=== PATIENT | female | born 1975 | race Caucasian/White ===

== ENCOUNTER 2020-07-15 12:00 | Outpatient (REF) | payer MEDICAID, SELFPAY ==
[2020-07-15 13:48] LABS: MANUAL DIFF FLAG NO
[2020-07-15 14:02] LABS: Basophils Percent Auto 0.3 % (0-2); Eosinophils Absolute Auto 0.2 X10*3/uL (0.0-0.4); Eosinophils Percent Auto 2.3 % (0-4); Hematocrit 44.8 % (37-47); Hemoglobin 13.8 g/dl (12.0-16.0); Imm Gran Abs Auto 0.03 X10*3/uL (0.00-0.03); Imm Gran Pct Auto 0.3 % (0.0-0.4); Lymphocytes Absolute Auto 2.9 X10*3/uL (1.2-4.9); Lymphocytes Percent Auto 28.6 % (20-40); Mean Corpuscular HGB Conc 30.8 g/dl (31.0-35.0); Mean Corpuscular Hemoglobin 27.8 pg (27.0-33.0); Mean Corpuscular Volume 90.3 fL (80-98); Mean Platelet Volume 12.9 fL (9.4-12.3); Monocytes Absolute Auto 0.5 X10*3/uL (0.1-1.2); Monocytes Percent Auto 4.7 % (2-11); Neutrophils Absolute Auto 6.5 X10*3/uL (2.0-8.3); Neutrophils Percent Auto 63.8 % (45-73); Platelet Count 212 X10*3/uL (160-400); Red Blood Count 4.96 X10*6/uL (4.20-5.50); Red Cell Distribution Width 13.8 % (11.0-16.0); White Blood Count 10.2 X10*3/uL (4.8-10.8)
[2020-07-15 14:25] LABS: Alanine Aminotransferase < 6 U/L (0-31); Albumin Level 4.1 g/dL (3.5-5.0); Alkaline Phosphatase 95 U/L (39-117); Anion Gap 15 (12-20); Aspartate Amino Transferase 12 U/L (5-31); Bilirubin Total 0.6 mg/dL (0.0-1.0); Blood Urea Nitrogen 12 mg/dL (9-16); Calcium 9.2 mg/dL (8.4-10.2); Carbon Dioxide 22 mmol/L (22-29); Chloride 106 mmol/L (96-108); Cholesterol 220 mg/dL; Estimated Glomerular Filt Rate > 60; Glucose Random 89 mg/dL (60-115); Potassium 4.2 mmol/L (3.3-5.1); Sodium 139 mmol/L (135-145); Total Protein 7.2 g/dL (6.5-8.0)
== END 2020-07-15 12:01 | disposition home or self-care (01) ==
LOC: HO.10HDL 12:00
PROVIDERS: Visit Provider Internal Medicine
DX: I10 Essential (primary) hypertension (principal); M19.019 Primary osteoarthritis, unspecified shoulder
CPT/HCPCS: 36415; 80053; 82465; 85025

== ENCOUNTER 2020-09-23 07:27 | Outpatient (REF) | payer MEDICAID, SELFPAY ==
--- NOTE | ~2020-09-23 | MM_ITS ---
EXAMINATION: MM SCREENING DIGITAL BREAST TOMOSYNTHESIS, BILATERAL CLINICAL INFORMATION: Screening. Asymptomatic. The lifetime risk of breast cancer based on the Tyrer-Cuzick Model is 16%. COMPARISON: Mammography: None. TECHNIQUE: Digital breast tomosynthesis is performed in both the craniocaudal and mediolateral oblique views along with computer-aided detection (CAD). Synthesized 2D images are generated from the tomosynthesis. Bilateral exaggerated craniocaudal views also performed. FINDINGS: There are scattered areas of fibroglandular density (ACR BI-RADS breast composition Category b). Within the upper outer aspect of the right breast, there is a region of architectural distortion for which further evaluation with ultrasound is recommended. No abnormal dominant mass or suspicious grouping of microcalcifications is seen within the left breast. MM/MM tomosynthesis screening BI IMPRESSION: Suspicious region of architectural distortion upper outer aspect of the right breast. ASSESSMENT: BI-RADS 0: Incomplete - Need Additional Imaging Evaluation RECOMMENDATION: 1. Additional views of the right breast. 2. Targeted ultrasound if warranted after review of the additional views. 3. Radiology department staff will contact the patient for additional imaging. This patient's information was entered into a reminder system with a target due date for their next mammogram.
== END 2020-09-23 07:28 | disposition home or self-care (01) ==
LOC: HO.MAMMO 07:27
PROVIDERS: PCP Internal Medicine; Visit Provider Internal Medicine
DX: Z12.31 Encounter for screening mammogram for malignant neoplasm of breast (principal)
CPT/HCPCS: 77063; 77067

== ENCOUNTER 2020-09-29 07:58 | Outpatient (REF) | payer MEDICAID, SELFPAY ==
--- NOTE | ~2020-09-29 | US_ITS ---
EXAMINATION: US DIAGNOSTIC ULTRASOUND BREAST, RIGHT CLINICAL INFORMATION: Region of architectural distortion upper outer quadrant of the right breast. Suspect radial scar. COMPARISON: Mammography of same day and 09/23/2020. TECHNIQUE: Ultrasound of the breast is performed with real-time villegas scale imaging and color Doppler. FINDINGS: At the 9 o'clock, position approximately 9 cm from the nipple, there is a heterogeneous hypoechoic region of sound shadowing measuring approximately 1 cm in width. Ultrasound-guided core biopsy is recommended. Results are discussed with the patient at time of visit. Breast Center Patient Navigator will call above recommendation to referring provider's office. US/US breast RT limited IMPRESSION: Right breast ill-defined region of suspicious distal-sound shadowing for which ultrasound-guided core biopsy is recommended. ASSESSMENT: BI-RADS 4: Suspicious RECOMMENDATION: Ultrasound-guided core biopsy right breast. This patient's information was entered into a reminder system with a target due date for their next mammogram.
--- NOTE | ~2020-09-29 | MM_ITS ---
EXAMINATION: MM DIAGNOSTIC DIGITAL BREAST TOMOSYNTHESIS, RIGHT BREAST CLINICAL INFORMATION: Architectural distortion upper outer aspect. COMPARISON: Mammography: 09/23/2020 TECHNIQUE: Digital breast tomosynthesis is performed. 2D images are generated from the tomosynthesis. The following views are obtained: Rolled craniocaudal views. FINDINGS: There are scattered areas of fibroglandular density (ACR BI-RADS breast composition Category b). There is again noted to be a region of architectural distortion about the upper outer aspect of the right breast suspicious for either malignancy or radial scar. Ultrasound evaluation of the upper outer quadrant of the right breast demonstrating shadowing abnormality. Results are discussed with the patient at time of visit. Patient navigator will call referring provider's office with the recommendation of ultrasound-guided core biopsy. MM/MM tomosynthesis added views R IMPRESSION: Suspicious right breast lesion for which ultrasound-guided core biopsy is recommended. ASSESSMENT: BI-RADS 4: Suspicious RECOMMENDATION: Ultrasound-guided core biopsy right breast. This patient's information was entered into a reminder system with a target due date for their next mammogram.
== END 2020-09-29 07:59 | disposition home or self-care (01) ==
LOC: HO.MAMMO 07:58
PROVIDERS: PCP Internal Medicine; Visit Provider Internal Medicine
DX: N64.89 Other specified disorders of breast (principal)
CPT/HCPCS: 76642; 77061; 77065

== ENCOUNTER 2020-10-12 09:28 | Outpatient (REF) | payer MEDICAID, SELFPAY ==
--- NOTE | ~2020-10-12 | MM_ITS ---
EXAMINATION: ULTRASOUND GUIDED CORE BIOPSY BREAST, RIGHT POST PROCEDURE DIGITAL MAMMOGRAM, RIGHT CLINICAL INFORMATION: Architectural distortion upper outer right breast on recent mammography. Imaging correlate suggested on ultrasound for tissue sampling. Family history breast cancer, paternal aunt. TC score 16%. COMPARISON: Mammography 09/23/2020 (baseline, BI-RADS 0). Mammography and targeted right breast ultrasound 09/29/2020. FINDINGS: Proper informed consent is obtained from the patient after discussion of the procedure, potential risks and complications, and alternatives. Patient was given an opportunity for questions. The patient appeared to understand. The patient consented to the procedure and signed the consent form. GUIDANCE: Ultrasound-guided; aseptic technique. LESION: Architectural changes upper outer right breast mid depth. APPROACH: Lateral medial. ANESTHESIA: 15 mL 1% lidocaine. DERMATOTOMY: Single skin malathi dermatotomy performed. NEEDLE: 14-gauge Achieve core biopsy device with 13.5-gauge co-axial guide needle. CORES: 8. CLIP: HydroMARK; shape: butterfly. Lesion difficult to visualize post sampling for optimal clip placement. POST PROCEDURE UNILATERAL DIGITAL MAMMOGRAM: The post biopsy mammogram is performed in separate room using separate digital mammography equipment from the biopsy procedure. CC and ML views are obtained. There are scattered areas of fibroglandular density (breast composition category: b). The clip marker resides 2.5 cm posterior to the architectural distortion on both views and is 1 cm inferior to the architectural distortion on the ML view. The patient tolerated the procedure well. No immediate complications. Home instructions reviewed with the patient. Final pathology results are pending. MM/MM diagnostic mammo unilat RT IMPRESSION: 1. Status post ultrasound-guided core biopsy right breast. 2. Clip placed: Ultraclip; shape: butterfly. The clip marker is 2.5 cm posterior to the architectural abnormality on mammography. 3. Pathology pending. An addendum report will be issued.
== END 2020-10-12 09:29 | disposition home or self-care (01) ==
LOC: HO.MAMMO 09:28
PROVIDERS: Visit Provider Surgery
DX: R92.8 Other abnormal and inconclusive findings on diagnostic imaging of breast (principal); E66.01 Morbid (severe) obesity due to excess calories; Z68.43 Body mass index [BMI] 50.0-59.9, adult; Z71.3 Dietary counseling and surveillance
CPT/HCPCS: 19083; 77065; 88305; 99202

== ENCOUNTER → 2020-10-24 13:09 | Outpatient (BNVA) | payer MEDICAID, SELFPAY | PROVIDERS: PCP Internal Medicine; Visit Provider Surgery ==

== ENCOUNTER 2020-10-31 07:48 | Outpatient (REF) | payer MEDICAID, SELFPAY ==
--- NOTE | ~2020-10-31 | MM_ITS ---
EXAMINATION: STEREOTACTIC TOMOSYNTHESIS-GUIDED VACUUM-ASSISTED BREAST BIOPSY, RIGHT SPECIMEN RADIOGRAPH, RIGHT POST PROCEDURE DIGITAL BREAST TOMOSYNTHESIS, RIGHT CLINICAL INFORMATION: 45-year-old with asymmetric density mid outer right breast on baseline mammography. Recent benign ultrasound-guided right breast biopsy clip, clip discordant location from mammographic finding. COMPARISON: 09/23/2020 (BI-RADS 0, baseline), 09/29/2020, 10/12/2020, targeted right breast ultrasound 09/29/2020, ultrasound-guided right breast biopsy 10/12/2020. TECHNIQUE/PROCEDURE: Informed consent was obtained from the patient after discussion of the benefits, risks, and alternatives to biopsy today. Patient appeared to understand. Gave opportunity for questions. Patient signed consent form. BIOPSY TABLE: [employer] Biopsy System LESION: Architectural changes mid 9:00 right breast. LOCAL ANESTHESIA: 5 mL 1% lidocaine; 10 mL 1% lidocaine with epinephrine. DERMATOTOMY: Single skin malathi dermatotomy performed. NEEDLE: [employer] Eviva 9-gauge vacuum assisted core biopsy device. APPROACH: lateral medial. TARGETING: Digital breast tomosynthesis used for targeting. CORES: 12. CLIP: [employer] - Financial [employer]conciliation SecurMark T-shaped marker. SPECIMEN RADIOGRAPH: Specimen radiograph is are taken in separate room using digital mammography. There are scattered parenchymal densities in the cores including some linear architectural markings. POST PROCEDURE DIGITAL BREAST TOMOSYNTHESIS, RIGHT: The post biopsy mammogram is performed in separate room using separate digital breast tomosynthesis equipment from the biopsy procedure. CC and ML views are obtained. Synthesized 2-D images are generated from the tomosynthesis. There are scattered areas of fibroglandular density (breast composition category: b). Biopsy clip marker is in the vicinity of the architectural changes, possibly slightly more superficial on CC view due to accordion effect. No gross hematoma. The patient tolerated the procedure well. No immediate complications. Home instructions reviewed with the patient. Final pathology results are pending. MM/MM stereotactic biopsy RT IMPRESSION: 1. Digital tomosynthesis-guided core biopsy right breast with clip placement. 2. Specimen radiograph taken and post procedure mammogram. Clip marker is in the vicinity of the architectural changes, possibly slightly more superficial on CC view due to accordion effect. 3. Final pathology results pending. An addendum report will be issued.
== END 2020-10-31 07:49 | disposition home or self-care (01) ==
LOC: HO.MAMMO 07:48
PROVIDERS: Visit Provider Surgery
DX: R92.8 Other abnormal and inconclusive findings on diagnostic imaging of breast (principal)
CPT/HCPCS: 19081; 88305; A4648

== ENCOUNTER → 2020-11-03 10:16 | Outpatient (BNVA) | payer MEDICAID, SELFPAY | PROVIDERS: PCP Internal Medicine; Visit Provider Surgery ==

== ENCOUNTER → 2020-11-10 15:41 | Outpatient (BNVA) | payer MEDICAID, SELFPAY | PROVIDERS: PCP Internal Medicine; Referring Provider Internal Medicine; Visit Provider Surgery | DX: N60.21 Fibroadenosis of right breast (principal); E66.01 Morbid (severe) obesity due to excess calories | CPT/HCPCS: 99212 ==

== ENCOUNTER 2020-11-23 10:11 | Outpatient (REF) | payer MEDICAID, SELFPAY ==
[2020-11-23 13:48] LABS: Basophils Percent Auto 0.2 % (0-2); Eosinophils Absolute Auto 0.2 X10*3/uL (0.0-0.4); Eosinophils Percent Auto 1.5 % (0-4); MANUAL DIFF FLAG SCAN; Mean Platelet Volume 13.1 fL (9.4-12.3); SCAN SMEAR FLAG 1
[2020-11-23 13:51] LABS: Hematocrit 43.7 % (37-47); Hemoglobin 13.8 g/dl (12.0-16.0); Imm Gran Abs Auto 0.04 X10*3/uL (0.00-0.03); Imm Gran Pct Auto 0.3 % (0.0-0.4); Lymphocytes Absolute Auto 2.8 X10*3/uL (1.2-4.9); Lymphocytes Percent Auto 23.3 % (20-40); Mean Corpuscular HGB Conc 31.6 g/dl (31.0-35.0); Mean Corpuscular Hemoglobin 28.5 pg (27.0-33.0); Mean Corpuscular Volume 90.1 fL (80-98); Monocytes Absolute Auto 0.6 X10*3/uL (0.1-1.2); Monocytes Percent Auto 4.8 % (2-11); Neutrophils Absolute Auto 8.3 X10*3/uL (2.0-8.3); Neutrophils Percent Auto 69.9 % (45-73); Platelet Count 225 X10*3/uL (160-400); Red Blood Count 4.85 X10*6/uL (4.20-5.50); Red Cell Distribution Width 13.9 % (11.0-16.0); White Blood Count 11.9 X10*3/uL (4.8-10.8)
[2020-11-23 13:52] LABS: PLT ABN DIST 1
[2020-11-23 14:24] LABS: SLIDE REVIEW VERIFIED
[2020-11-23 14:35] LABS: Anion Gap 15 (12-20); Blood Urea Nitrogen 11 mg/dL (9-16); Calcium 8.9 mg/dL (8.4-10.2); Carbon Dioxide 21 mmol/L (22-29); Chloride 107 mmol/L (96-108); Estimated Glomerular Filt Rate > 60; Glucose Random 88 mg/dL (60-115); Potassium 4.2 mmol/L (3.3-5.1); Sodium 139 mmol/L (135-145)
== END 2020-11-23 10:12 | disposition home or self-care (01) ==
LOC: HO.10HDL 10:11
PROVIDERS: PCP Internal Medicine; Visit Provider Internal Medicine
DX: Z01.818 Encounter for other preprocedural examination (principal)
CPT/HCPCS: 36415; 80048; 85025

== ENCOUNTER 2021-03-28 06:52 | Day surgery (SDC) | payer MEDICAID, SELFPAY ==
[2021-03-28] VITALS (13 sets, daily range): BP systolic 118–157; BP diastolic 52–74; PULSE 78–102; RESP 14–17; TEMP 36.4–36.8; O2SAT 93–99; BMI 48.4
--- NOTE | ~2021-03-28 | MM_ITS ---
EXAMINATION: MM MAMMOGRAM GUIDED NEEDLE LOCALIZATION BREAST, RIGHT MM NEEDLE LOCALIZATION SPECIMEN FROM THE RIGHT BREAST CLINICAL INFORMATION: Sclerosing lesion right breast for excision. COMPARISON: Stereotactic biopsy 10/31/2020, mammography 10/12/2020, 09/29/2020, 09/23/2020 (baseline). TECHNIQUE NEEDLE LOC: Proper informed consent is obtained from the patient after discussion of the procedure, potential risks and complications, and alternatives including declining the procedure today. Patient was given an opportunity for questions. The patient appeared to understand. The patient consented to the procedure and signed the consent form. GUIDANCE: Digital mammography. APPROACH: Lateral Medial. TARGET: T shaped biopsy clip marker and subtle architectural changes. ANESTHESIA: Carbonated lidocaine 1%: 7 mL. LOCALIZATION MARKER: [place] [employer]. 7.5 cm length. The skin is prepped and local anesthesia administered. The needle is positioned and position assessed with mammography. The wire is hooked into position. [place] needle protector placed. The patient tolerated the procedure well and had no immediate complication. Procedure discussed with surgeon prior to excision. TECHNIQUE SPECIMEN RADIOGRAPH: Imaging of the excised specimen is performed using digital mammography in 1 view. FINDINGS SPECIMEN RADIOGRAPH: The specimen shows the distal needle and hookwire are delivered intact within the specimen. The T shaped biopsy clip marker and subtle architectural changes are identified in the specimen. Results were called to Dr. Mika Houston in the operating room at the time of imaging. MM/MM needle loc RT IMPRESSION: 1. Status post right breast needle localization with wire hooked into position. 2. Post operative specimen radiograph obtained.
[2021-03-28 07:24] LABS: UPreg QC Valid YES; Urine Pregnancy NEGATIVE (NEGATIVE)
[2021-03-28] MEDS: Lactated Ringers 1,000 ML 80 ML IVCONT (07:52)
--- NOTE | 2021-03-28 07:52 | HO.ANESPROP2 ---
HPI - Anesthesia Eval Consult details Narrative: 45 F for right breast lumpectomy PMFSH Active Problems Active Problems: All Active Problems (Updated 11/10/20 @ 16:37 by Mika Houston MD) Sclerosing adenosis of right breast (Acute) Morbid obesity (Acute) Depression (Acute) Abnormal mammogram of right breast (Acute) Past Medical History Medical History (Updated 11/10/20 @ 16:37 by Mika Houston MD) Abnormal mammogram of right breast Depression Morbid obesity Sclerosing adenosis of right breast Family History Family History Paternal Aunt History of breast cancer Father Prostate cancer Skin cancer Paternal Grandmother Lung cancer Family history of problems with anesthesia: No Surgical History Surgical History History of shoulder surgery History of Problems with Anesthesia: No Social History Social History Alcohol intake: current Alcohol intake frequency: holidays/special occasions only Patient Tobacco Use Status: Never used Tobacco Meds Allergies Allergy/AdvReac Type Severity Reaction Status Date / Time No Known Allergies Allergy Verified 11/10/20 15:54 [No Known Allergies*] Active Medications: Current Medications Lactated Ringer's (Lr) 1,000 mls @ 80 mls/hr IVCONT .[id number] ANTHONY Exam Exam Date and Time: March 28, 2021 0752 Height,Weight and Vital Signs: Height 5 ft 6 in Weight 136.078 kg Last Vital Signs Temp 98.2 F 03/28/21 07:10 Pulse 102 H 03/28/21 07:10 Resp 17 03/28/21 07:10 BP 157/68 H 03/28/21 07:10 Pulse Ox 97 03/28/21 07:10 Pertinent Lab Results Pertinent Lab Results: Laboratory Tests 03/28/21 07:05 Urine Test NEGATIVE Airway Mallampati Class: III TM Dist: >3cm Neck ROM: Full Loose/Missing/Broken Teeth: Yes (Chipped , wire at bottom ) Heart: rrr Lungs: bl breath sounds Assessment and Plan Assessment Anesthesia Assessment: Anesthesia Plan Discussed Final Anesthetic Review Family History of Problems with Anesthesia: No History of Problems with Anesthesia: No NPO: Yes ASA Class: III Final Preanesthetic Review: Meds/Allgs Chart Reviewed, Consent Obtained/Reviewed and Anes Risks/Benef Reviewed Patient Risk: Intermediate Procedure Risk: Intermediate Anesthetic Plan Anesthetic Plan: GA Disposition: Standard PACU
--- NOTE | 2021-03-28 08:09 | PC.NURSE ---
pt to rad for needle loc
--- NOTE | 2021-03-28 08:23 | MHC.SHP ---
Pre-Procedural Eval Section A Date of Service: 03/28/21 Section B Chief Complaint: Sclerosing adenosis of right breast Details of Present Illness: she had stereotactic biopsy of right breast calcifications showing sclerosing adenosis the right breast. Relevant Family History (Specify if Yes): No Relevant Social History: None Medical History: Significant History ( Obesity, depression) History of Previous Operations: No relevant previous surgery Allergies: Allergies Allergy/AdvReac Type Severity Reaction Status Date / Time No Known Allergies Allergy Verified 11/10/20 15:54 [No Known Allergies*] Review of Systems Sugical H&P ROS: Negative: Constitution, Cardiovascular, Respiratory, Neurological, Psychiatric, Hem-Onc, Allergic/Immunologic, Gastrointestinal, Genitourinary, Musculoskeletal, Integumentary, Endocrine and Eyes/Ears/Nose/Throat Exam Surgical H&P Exam: Normal: HEENT, Normal: Heart, Normal: Lungs, Normal: Extremities, Normal: Abdomen, Normal: Skin and Normal: Neurological Plan Diagnosis/Plan: Unchanged I have reviewed the history and physical and performed a pertinent physical examination on my patient. No changes have occurred unless specified.
[2021-03-28] MEDS: Lidocaine HCl 1 % 20 ML VIAL 10 ML SUBCUT (09:27)
[2021-03-28] MEDS: Sodium Bicarbonate 8.4% 50 MEQ/50 ML VIAL SUBCUT (09:29)
--- NOTE | 2021-03-28 09:58 | P.OP_ITS ---
Operative Note Operative Note Date of Service: 03/28/21 Narrative: Preop diagnosis: Sclerosing adenosis, right breast Postop diagnosis: Sclerosing adenosis, right breast Procedure: Lumpectomy, right breast with needle localization Surgeon: Mika Houston MD apartment assistant manager: SORAYA Aguilar The patient is a 45-year-old female who had undergone stereotactic biopsy of right breast calcifications. Her path report showed sclerosing adenosis of the right breast. I had recommended proceeding with lumpectomy to rule out other associated high risk lesions. She understood the technique of lumpectomy with needle localization. She was aware of the risks, benefits, and alternatives. She was brought to the operating room and placed supine on the table under general anesthesia via laryngeal mask airway. She had undergone needle localization earlier. I have reviewed the localizing images with the radiologist. The localizing needle seen entering from lateral to medial. The right breast was prepped and draped in the usual sterile fashion. A surgical time-out was done. The patient received cefazolin 2 g IV preoperatively . I infiltrated the planned line of incision with lidocaine 1%. I made the incision using blade 15 tangential to the entry point of the needle itself. This was carried down through the full-thickness of skin and subcutaneous fat. I then used curved Bauer scissors to divide the tissue surrounding the needle. I made sure that we had generous margins of breast tissue surrounding the needle so as to include the clip as well as the lesion. I proceeded to continue to circumferentially around needle with generous amounts of breast tissue and periodic a palpated for the needle itself to make sure that we were going into correct direction. I then applied a short stitch to kya the superior aspect of the specimen and a long stitch lateral aspect of the specimen. I proceeded to continue to dissect around the deep margins making sure that we were past the curve of the needle. I completed the dissection and delivered the specimen. This was went for immediate reray. I copiously irrigated the lumpectomy site. There was note of some oozing in 1 particular area which we controlled with electrocautery. I irrigated and another again fluid. Observed for hemostasis for a minute. Once hemostasis was ensured, I proceeded to reapposed the breast tissue with simple interrupted Dexon 3-0 sutures. Skin closure was achieved with Dexon 4-0 subcuticular running stitch. The incision was infiltrated with Marcaine 0.5% for Postop analgesia. Steri-Strips and dressings were applied and the procedure was completed . Then received a phone call from the radiologist confirming that the clip was in place and that the entire localizing needle was intact along with generous breast tissue surrounding this. The patient tolerated procedure well. There were no complication noted. Initial and final counts of sponges and instruments were correct. Estimated blood loss was about 30 cc The patient was extubated without difficulty and transferred to the recovery room with stable vital signs.
--- NOTE | 2021-03-28 10:07 | PM.OP ---
Brief Operative Note Date of Service: 03/28/21 Pre-op diagnosis: sclerosing adenosis, right breast Post-op diagnosis: same Procedure: lumpectomy with needle localization, right breast Surgeon: Mika Houston MD Anesthesia: GLMA Was an Auxiliary Plant Operator used for this Procedure?: Yes Auxiliary Plant Operator: Sandra Aguilar Estimated blood loss (mL): 40 Condition: stable Disposition: PACU
[2021-03-28] MEDS: oxyCODONE HCl Immed Release 5 MG TABLET PO (10:50)
[2021-03-28] MEDS: fentaNYL citrate/PF 100 MCG/2 ML VIAL 25 MCG IVPUSH ×3 (10:50→11:00)
[2021-03-28] MEDS: Ketorolac Tromethamine 30 MG/ML VIAL 15 MG IVPUSH (11:00)
== END 2021-03-28 12:38 | disposition home or self-care (01) ==
PROVIDERS: PCP Internal Medicine; Visit Provider Surgery
PROC: (CPT 19301; principal; 2021-03-28 09:00)
PROC: (CPT 19301; 2021-03-28 09:00)
DX: N60.21 Fibroadenosis of right breast (principal); E66.01 Morbid (severe) obesity due to excess calories
CPT/HCPCS: 19301; 19281; 81025; 88307; 88329; 88341; 88342; A4648; J0690; J1885; J2250; J2405; J3010

== ENCOUNTER 2022-08-18 08:12 | Outpatient (REF) | payer OTHER, SELFPAY ==
--- NOTE | ~2022-08-18 | MM_ITS ---
EXAMINATION: MM SCREENING DIGITAL BREAST TOMOSYNTHESIS, BILATERAL CLINICAL INFORMATION: Screening. Asymptomatic. Benign right lumpectomy 03/28/2021 (sclerosing adenosis, fibrocystic changes, usual ductal hyperplasia. No atypia or malignancy). The lifetime risk of breast cancer based on the Tyrer-Cuzick Model is 16%. COMPARISON: Multiple prior exams dating back to baseline 09/23/2020. TECHNIQUE: Digital breast tomosynthesis is performed in both the craniocaudal and mediolateral oblique views along with computer-aided detection (CAD). Synthesized 2D images are generated from the tomosynthesis. FINDINGS: There are scattered areas of fibroglandular density (ACR BI-RADS breast composition Category b). There is minor scarring mid upper outer right breast corresponding to the prior excisional biopsy. Neither breast shows architectural abnormality or abnormal calcifications. The bilateral axilla and skin contours are unremarkable. Left breast has a new smooth oval nodule approximately 5 mm posterior central outer breast on CC view. Not clearly seen with certainty on the MLO view. Patient will be recalled for additional imaging. MM/MM tomosynthesis screening BI IMPRESSION: Right: -No mammographic evidence of malignancy. Left: -New smooth oval asymmetric density around 5 mm posterior central outer breast, CC view. ASSESSMENT: BI-RADS 0: Incomplete - Need Additional Imaging Evaluation RECOMMENDATION: 1. Additional views left breast (spot MLO, standard ML). 2. Targeted ultrasound if warranted after review of the additional views. 3. Radiology department staff will contact the patient for additional imaging. This patient's information was entered into a reminder system with a target due date for their next mammogram.
== END 2022-08-18 08:13 | disposition home or self-care (01) ==
LOC: HO.MAMMO 08:12
PROVIDERS: Visit Provider Internal Medicine
DX: Z12.31 Encounter for screening mammogram for malignant neoplasm of breast (principal)
CPT/HCPCS: 77063; 77067

== ENCOUNTER 2022-08-24 13:02 | Outpatient (REF) | payer OTHER, MEDICAID, SELFPAY ==
--- NOTE | ~2022-08-24 | MM_ITS ---
EXAMINATION: MM DIAGNOSTIC DIGITAL BREAST TOMOSYNTHESIS, LEFT US BREAST, TARGETED, LIMITED, LEFT CLINICAL INFORMATION: Circumscribed density deep lateral aspect left breast. COMPARISON: Mammography: 08/18/2022 and studies dating back to 09/23/2020. TECHNIQUE: Digital breast tomosynthesis is performed. 2D images are generated from the tomosynthesis. The following views are obtained: Spot compression view in craniocaudal projection and 90 degree mediolateral view. Targeted left breast ultrasound. FINDINGS: MAMMOGRAM: There are scattered areas of fibroglandular density (ACR BI-RADS breast composition Category b). There is persistence of a smoothly circumscribed density about the deep lateral aspect of the left breast measuring approximately 5 mm in diameter and about 11 cm from the nipple. ULTRASOUND: Targeted left breast ultrasound demonstrated a simple cyst at the 3 o'clock position approximately 10 cm from the nipple measuring 4 x 4 by 3 mm in size with smooth back wall and increased through sound transmission and anechoic center without internal vascular flow. Results are discussed with the patient at time of visit. MM/MM tomosynthesis added views L IMPRESSION: Left breast density corresponds to a simple cyst. ASSESSMENT: BI-RADS 2: Benign RECOMMENDATION: Routine annual mammography screening due in 12 months. This patient's information was entered into a reminder system with a target due date for their next mammogram.
== END 2022-08-24 13:03 | disposition home or self-care (01) ==
LOC: HO.MAMMO 13:02
PROVIDERS: PCP Internal Medicine; Visit Provider Internal Medicine
DX: R92.2 Inconclusive mammogram (principal)
CPT/HCPCS: 76642; 77061; 77065

== ENCOUNTER 2022-08-25 08:53 | Outpatient (REF) | payer OTHER, SELFPAY ==
[2022-08-25 09:07] LABS: MANUAL DIFF FLAG NO
[2022-08-25 09:16] LABS: Basophils Percent Auto 0.2 % (0-2); Eosinophils Absolute Auto 0.3 X10*3/uL (0.0-0.4); Hematocrit 44.5 % (37.0-47.0); Hemoglobin 14.2 g/dl (12.0-16.0); Imm Gran Abs Auto 0.03 X10*3/uL (0.00-0.03); Imm Gran Pct Auto 0.3 % (0.0-0.4); Lymphocytes Absolute Auto 3.2 X10*3/uL (1.2-4.9); Lymphocytes Percent Auto 32.9 % (20-40); Mean Corpuscular HGB Conc 31.9 g/dl (31.0-35.0); Mean Corpuscular Hemoglobin 28.5 pg (27.0-33.0); Mean Corpuscular Volume 89.4 fL (80.0-98.0); Mean Platelet Volume 12.5 fL (9.4-12.3); Monocytes Absolute Auto 0.5 X10*3/uL (0.1-1.2); Monocytes Percent Auto 5.2 % (2-11); Neutrophils Absolute Auto 5.6 x10*3/uL (2.0-8.3); Neutrophils Percent Auto 58.4 % (45-73); Platelet Count 231 X10*3/uL (160-400); Red Blood Count 4.98 X10*6/uL (4.20-5.50); Red Cell Distribution Width 13.4 % (11.0-16.0); White Blood Count 9.6 X10*3/uL (4.8-10.8)
[2022-08-25 09:46] LABS: Alanine Aminotransferase 9 U/L (0-31); Albumin Level 3.9 g/dL (3.5-5.0); Alkaline Phosphatase 93 U/L (39-117); Anion Gap 10 (12-20); Aspartate Amino Transferase 17 U/L (5-31); Bilirubin Total 0.8 mg/dL (0.0-1.0); Blood Urea Nitrogen 8 mg/dL (9-16); Calcium 9.1 mg/dL (8.4-10.2); Carbon Dioxide 26 mmol/L (22-29); Chloride 108 mmol/L (96-108); Cholesterol 204 mg/dL; Estimated Glomerular Filt Rate > 60; Glucose Fasting 108 mg/dL (60-99); HDL Cholesterol 44 mg/dL; LDL Cholesterol Calculated 141 mg/dl; Potassium 4.1 mmol/L (3.3-5.1); Sodium 140 mmol/L (135-145); Total Protein 6.8 g/dL (6.5-8.0); Triglycerides 99 mg/dL
== END 2022-08-25 08:54 | disposition home or self-care (01) ==
LOC: HO.LAB 08:53
PROVIDERS: PCP Internal Medicine; Visit Provider Internal Medicine
DX: K21.9 Gastro-esophageal reflux disease without esophagitis (principal); M19.90 Unspecified osteoarthritis, unspecified site; Z82.49 Family history of ischemic heart disease and other diseases of the circulatory system
CPT/HCPCS: 36415; 80053; 80061; 85025